=== PATIENT | female | born 1965 | race Caucasian/White ===

== ENCOUNTER 2016-11-08 09:46 | Inpatient (IN) | payer OTHER ==
[~2016-11-08] VITALS: Ht 162.6 cm; Wt 90.3 kg
[2016-11-08] MEDS ORDERED: KETOROLAC 30MG/ML VIAL IV ONE (11:45)
[2016-11-08 14:28] LABS: BASOPHILS % 0.5 % (0.0-2.0); EOSINOPHILS % 0.6 % (0.0-5.0); HEMATOCRIT. 41.5 % (36.0-48.0); MEAN CORPUSCULAR HEMOGLOBIN 28.6 pg (28.0-32.0); MEAN CORPUSCULAR VOLUME 84.9 fL (81.0-99.0); MEAN PLATELET VOLUME 7.9 fl (7.4-10.4); MONOCYTES % 6.7 % (2.0-8.0); NEUTROPHILS % 72.2 % (40.0-76.0); PLATELET 254 x1000/uL (130-400); RED BLOOD CELL COUNT 4.89 mill/uL (4.2-5.4); RED CELL DISTRIBUTION WIDTH 13.7 % (11.6-14.6)
[2016-11-08 14:32] LABS: PARTIAL THROMBOPLASTIN TIME 25.9 sec (23.4-31.0); PROTHROMBIN TIME 10.2 sec (9.4-11.6)
[2016-11-08 14:40] LABS: CARBON DIOXIDE 29 mEq/L (21-32); CHLORIDE 107 mEq/L (98-107)
[2016-11-08] MEDS ORDERED: MORPHINE SULFATE 4 MG/ML CPJ (NOT FOR IM USE) IV NR (15:15)
[2016-11-08] MEDS ORDERED: ACETAMINOPHEN 325MG TABLET PO PRN (15:30)
[2016-11-08] MEDS ORDERED: CLONIDINE 0.1MG TABLET PO PRN (15:30)
[2016-11-08] MEDS ORDERED: ONDANSETRON HCL 4MG/2ML VIAL IV PRN (15:30)
[2016-11-08] MEDS ORDERED: IPRATROPIUM/ALBUTEROL 0.5-3(2.5)MG/3ML NEB INH PRN (15:30)
[2016-11-08] MEDS ORDERED: DOCUSATE SODIUM 100MG CAPSULE PO PRN (15:30)
[2016-11-08 16:39] LABS: HCG SCREEN NEGATIVE
[2016-11-08 20:00] VITALS: BP_SYST 135; BP_SYST 147; BP_DIAS 56; BP_DIAS 57
[2016-11-08] MEDS ORDERED: ZOLPIDEM TARTRATE 5MG TABLET PO PRN (21:00)
[2016-11-08] MEDS: SODIUM CHLORIDE 0.9% 1,000 ML IV SCH (21:41)
[2016-11-08] MEDS: MORPHINE SULFATE 4 MG/ML CPJ (NOT FOR IM USE) IV PRN (21:41)
[2016-11-09] VITALS: BP 113/52
[2016-11-09 04:00] VITALS: BP 98/55
[2016-11-09] MEDS: MORPHINE SULFATE 4 MG/ML CPJ (NOT FOR IM USE) IV PRN ×4 (04:21→20:41)
[2016-11-09 07:12] LABS: BASOPHILS % 0.7 % (0.0-2.0); EOSINOPHILS % 2.6 % (0.0-5.0); HEMATOCRIT. 36.7 % (36.0-48.0); HEMOGLOBIN. 12.4 g/dL (12.0-16.0); LYMPHOCYTES % 35.8 % (20.0-50.0); MEAN CORPUSCULAR HEMOGLOBIN 28.8 pg (28.0-32.0); MEAN CORPUSCULAR VOLUME 85.2 fL (81.0-99.0); MEAN PLATELET VOLUME 8.2 fl (7.4-10.4); MONOCYTES % 8.9 % (2.0-8.0); PLATELET 229 x1000/uL (130-400); RED BLOOD CELL COUNT 4.31 mill/uL (4.2-5.4); RED CELL DISTRIBUTION WIDTH 13.9 % (11.6-14.6)
[2016-11-09 07:26] LABS: CLARITY URINE CLEAR (CLEAR); COLOR URINE YELLOW (YELLOW); GLUCOSE URINE NEGATIVE (NEGATIVE); KETONES URINE NEGATIVE (NEGATIVE); LEUKOCYTE ESTERASE URINE NEGATIVE (NEGATIVE); NITRITE URINE NEGATIVE (NEGATIVE); OCCULT BLOOD URINE TRACE (NEGATIVE); PH URINE 6.5 (4.5-8.0); PROTEIN URINE NEGATIVE (NEGATIVE); SPECIFIC GRAVITY URINE 1.023 (1.005-1.030)
[2016-11-09 07:53] LABS: CARBON DIOXIDE 28 mEq/L (21-32); CHLORIDE 104 mEq/L (98-107)
[2016-11-09 08:00] VITALS: BP 112/58
[2016-11-09] MEDS: PANTOPRAZOLE SODIUM 40 MG/VIAL IV SCH (08:33)
[2016-11-09] MEDS ORDERED: BACITRACIN ZINC 15GM TUBE TOP ONE (10:19)
[2016-11-09] MEDS ORDERED: BACITRACIN 50,000 UNITS/VIAL ONE (10:20)
[2016-11-09] MEDS ORDERED: VANCOMYCIN HCL 500 MG/VIAL ONE (10:20)
[2016-11-09] MEDS ORDERED: NORMAL SALINE 0.9% 10 ML SYR ONE ×2 (10:20→10:21)
[2016-11-09] MEDS ORDERED: MIDAZOLAM HCL 2 MG/2 ML VIAL ONE (10:54)
[2016-11-09] MEDS ORDERED: FENTANYL CITRATE/PF 50MCG/ML 2ML VIAL ONE (10:54)
[2016-11-09] MEDS ORDERED: ONDANSETRON HCL 4MG/2ML VIAL ONE (11:31)
[2016-11-09] MEDS ORDERED: DEXAMETHASONE 4MG/ML 1ML VIAL ONE (11:31)
[2016-11-09] MEDS ORDERED: FENTANYL CITRATE/PF 50MCG/ML 2ML VIAL IV PRN (12:00)
[2016-11-09] MEDS ORDERED: ONDANSETRON HCL 4MG/2ML VIAL IV SCH (12:00)
[2016-11-09] MEDS ORDERED: PROPOFOL 200MG/20ML VIAL IV ONE (12:03)
[2016-11-09] MEDS: MORPHINE SULFATE 2 MG/ML CPJ (NOT FOR IM USE) IV PRN ×2 (12:35→13:15)
[2016-11-09] MEDS: CEFAZOLIN 1000MG PREMIX 50 ML IV SCH ×3 (14:00→23:39)
[2016-11-09 15:43] VITALS: BP 121/67
[2016-11-09] MEDS: SODIUM CHLORIDE 0.9% 1,000 ML IV SCH (15:45)
[2016-11-09 20:00] VITALS: BP 135/70
[2016-11-10] VITALS: BP 106/53
[2016-11-10] MEDS: MORPHINE SULFATE 4 MG/ML CPJ (NOT FOR IM USE) IV PRN ×4 (01:29→21:33)
[2016-11-10 04:00] VITALS: BP 109/69
[2016-11-10 07:20] LABS: BASOPHILS % 0.2 % (0.0-2.0); EOSINOPHILS % 0.1 % (0.0-5.0); HEMATOCRIT. 34.3 % (36.0-48.0); HEMOGLOBIN. 11.6 g/dL (12.0-16.0); MEAN CORPUSCULAR HEMOGLOBIN 28.7 pg (28.0-32.0); MEAN CORPUSCULAR VOLUME 85.1 fL (81.0-99.0); MEAN PLATELET VOLUME 8.2 fl (7.4-10.4); MONOCYTES % 6.3 % (2.0-8.0); NEUTROPHILS % 74.4 % (40.0-76.0); PLATELET 212 x1000/uL (130-400); RED BLOOD CELL COUNT 4.03 mill/uL (4.2-5.4); RED CELL DISTRIBUTION WIDTH 13.4 % (11.6-14.6)
[2016-11-10 07:25] LABS: CARBON DIOXIDE 28 mEq/L (21-32); CHLORIDE 106 mEq/L (98-107)
[2016-11-10 08:00] VITALS: BP 96/52
[2016-11-10] MEDS: PANTOPRAZOLE SODIUM 40 MG/VIAL IV SCH (09:36)
[2016-11-10] MEDS: OMEPRAZOLE 20MG CAPSULE EXTENDED RELEASE PO SCH (09:36)
[2016-11-10] MEDS: ENOXAPARIN 40MG/0.4ML SYR SUBCUT SCH (09:38)
[2016-11-10] MEDS: HYDROCODONE/ACETAMINOPHEN 5/325MG TABLET PO PRN (09:39)
[2016-11-10 12:00] VITALS: BP 105/61
[2016-11-10] MEDS: SODIUM CHLORIDE 0.9% 1,000 ML IV SCH (13:03)
[2016-11-10 16:00] VITALS: BP 102/46
[2016-11-10 20:00] VITALS: BP 121/68
[2016-11-11] VITALS: BP 116/62
[2016-11-11 04:00] VITALS: BP 109/61
[2016-11-11] MEDS: MORPHINE SULFATE 4 MG/ML CPJ (NOT FOR IM USE) IV PRN (04:18)
[2016-11-11 06:06] LABS: BASOPHILS % 0.7 % (0.0-2.0); HEMATOCRIT. 35.3 % (36.0-48.0); HEMOGLOBIN. 11.8 g/dL (12.0-16.0); LYMPHOCYTES % 41.4 % (20.0-50.0); MEAN CORPUSCULAR HEMOGLOBIN 28.6 pg (28.0-32.0); MEAN CORPUSCULAR VOLUME 85.6 fL (81.0-99.0); MEAN PLATELET VOLUME 8.1 fl (7.4-10.4); MONOCYTES % 7.2 % (2.0-8.0); NEUTROPHILS % 48.7 % (40.0-76.0); PLATELET 224 x1000/uL (130-400); RED BLOOD CELL COUNT 4.13 mill/uL (4.2-5.4); RED CELL DISTRIBUTION WIDTH 13.6 % (11.6-14.6)
[2016-11-11 06:55] LABS: CARBON DIOXIDE 29 mEq/L (21-32); CHLORIDE 107 mEq/L (98-107)
[2016-11-11 08:00] VITALS: BP 101/57
[2016-11-11] MEDS: OMEPRAZOLE 20MG CAPSULE EXTENDED RELEASE PO SCH (08:52)
[2016-11-11] MEDS: ENOXAPARIN 40MG/0.4ML SYR SUBCUT SCH (09:20)
[2016-11-11] MEDS: HYDROCODONE/ACETAMINOPHEN 5/325MG TABLET PO PRN ×3 (09:28→23:00)
[2016-11-11] MEDS ORDERED: MORPHINE SULFATE 2 MG/ML CPJ (NOT FOR IM USE) IV PRN (10:45)
[2016-11-11] MEDS ORDERED: HYDROCODONE/ACETAMINOPHEN 5/325MG TABLET PO PRN (10:45)
[2016-11-11 12:00] VITALS: BP 111/63
[2016-11-11] MEDS: POLYETHYLENE GLYCOL 3350 (17GM) 1 DOSE PACK PO SCH (14:20)
[2016-11-11 16:00] VITALS: BP 101/58
[2016-11-11 20:00] VITALS: BP 130/71
[2016-11-12] VITALS: BP 125/68
[2016-11-12 04:00] VITALS: BP 121/71
[2016-11-12] MEDS ORDERED: NA PHOS,M-B/NA PHOS,DI-BA ENEMA 118ML PR PRN (09:15)
[2016-11-12] MEDS ORDERED: NA PHOS,M-B/NA PHOS,DI-BA ENEMA 118ML PR NR (09:15)
[2016-11-12] MEDS: HYDROCODONE/ACETAMINOPHEN 5/325MG TABLET PO PRN ×2 (10:05→20:55)
[2016-11-12] MEDS: ENOXAPARIN 40MG/0.4ML SYR SUBCUT SCH (10:05)
[2016-11-12] MEDS: LACTULOSE 20G/30ML UDC PO SCH ×3 (10:05→17:00)
[2016-11-12] MEDS: POLYETHYLENE GLYCOL 3350 (17GM) 1 DOSE PACK PO SCH (10:06)
[2016-11-12 12:00] VITALS: BP 123/72
[2016-11-12 16:00] VITALS: BP 111/66
[2016-11-12] MEDS: DOCUSATE SODIUM 100MG CAPSULE PO SCH (17:00)
[2016-11-12 20:00] VITALS: BP 123/58
[2016-11-13] VITALS: BP 122/54
[2016-11-13] MEDS: HYDROCODONE/ACETAMINOPHEN 5/325MG TABLET PO PRN ×3 (00:30→22:23)
[2016-11-13 04:00] VITALS: BP 106/58
[2016-11-13 06:31] LABS: BASOPHILS % 0.4 % (0.0-2.0); EOSINOPHILS % 4.5 % (0.0-5.0); HEMATOCRIT. 36.9 % (36.0-48.0); HEMOGLOBIN. 12.5 g/dL (12.0-16.0); LYMPHOCYTES % 36.1 % (20.0-50.0); MEAN CORPUSCULAR HEMOGLOBIN 28.8 pg (28.0-32.0); MEAN PLATELET VOLUME 7.9 fl (7.4-10.4); MONOCYTES % 8.2 % (2.0-8.0); NEUTROPHILS % 50.8 % (40.0-76.0); PLATELET 247 x1000/uL (130-400); RED BLOOD CELL COUNT 4.34 mill/uL (4.2-5.4); RED CELL DISTRIBUTION WIDTH 13.8 % (11.6-14.6)
[2016-11-13 07:07] LABS: CARBON DIOXIDE 27 mEq/L (21-32); CHLORIDE 107 mEq/L (98-107)
[2016-11-13 08:00] VITALS: BP 120/70
[2016-11-13] MEDS: ENOXAPARIN 40MG/0.4ML SYR SUBCUT SCH (08:28)
[2016-11-13] MEDS: POLYETHYLENE GLYCOL 3350 (17GM) 1 DOSE PACK PO SCH (08:30)
[2016-11-13] MEDS: DOCUSATE SODIUM 100MG CAPSULE PO SCH ×2 (08:30→16:19)
[2016-11-13 12:00] VITALS: BP 121/63
[2016-11-13 16:00] VITALS: BP 132/70
[2016-11-13 20:00] VITALS: BP 132/65
[2016-11-14] VITALS: BP 116/59
[2016-11-14 04:00] VITALS: BP 121/63
[2016-11-14 08:00] VITALS: BP 130/69
[2016-11-14] MEDS: ENOXAPARIN 40MG/0.4ML SYR SUBCUT SCH (08:08)
[2016-11-14] MEDS: DOCUSATE SODIUM 100MG CAPSULE PO SCH ×2 (08:08→17:47)
[2016-11-14] MEDS: POLYETHYLENE GLYCOL 3350 (17GM) 1 DOSE PACK PO SCH (08:09)
[2016-11-14] MEDS: HYDROCODONE/ACETAMINOPHEN 5/325MG TABLET PO PRN (09:02)
[2016-11-14] MEDS ORDERED: MORPHINE SULFATE 2 MG/ML CPJ (NOT FOR IM USE) IV PRN (11:45)
[2016-11-14 12:00] VITALS: BP 140/71
[2016-11-14 16:00] VITALS: BP 138/69
[2016-11-14] MEDS: OMEPRAZOLE 20MG CAPSULE EXTENDED RELEASE PO SCH (16:33)
[2016-11-14] MEDS: TRAMADOL 50MG TABLET PO PRN (16:44)
[2016-11-14 20:00] VITALS: BP 126/70
[2016-11-14] MEDS ORDERED: DIPHENHYDRAMINE 25MG CAPSULE PO PRN (23:45)
[2016-11-15] VITALS: BP 127/66
[2016-11-15 04:00] VITALS: BP 123/67
[2016-11-15 06:14] LABS: BASOPHILS % 0.6 % (0.0-2.0); EOSINOPHILS % 3.9 % (0.0-5.0); HEMATOCRIT. 36.3 % (36.0-48.0); HEMOGLOBIN. 12.3 g/dL (12.0-16.0); LYMPHOCYTES % 25.6 % (20.0-50.0); MEAN CORPUSCULAR HEMOGLOBIN 28.8 pg (28.0-32.0); MEAN CORPUSCULAR VOLUME 85.2 fL (81.0-99.0); MEAN PLATELET VOLUME 8.1 fl (7.4-10.4); MONOCYTES % 8.3 % (2.0-8.0); NEUTROPHILS % 61.6 % (40.0-76.0); PLATELET 257 x1000/uL (130-400); RED BLOOD CELL COUNT 4.26 mill/uL (4.2-5.4); RED CELL DISTRIBUTION WIDTH 13.5 % (11.6-14.6)
[2016-11-15 06:18] LABS: CARBON DIOXIDE 27 mEq/L (21-32); CHLORIDE 104 mEq/L (98-107)
[2016-11-15 08:00] VITALS: BP 134/84
[2016-11-15] MEDS: POLYETHYLENE GLYCOL 3350 (17GM) 1 DOSE PACK PO SCH (09:15)
[2016-11-15] MEDS: ENOXAPARIN 40MG/0.4ML SYR SUBCUT SCH (09:15)
[2016-11-15] MEDS: DOCUSATE SODIUM 100MG CAPSULE PO SCH ×2 (09:15→17:31)
[2016-11-15] MEDS: OMEPRAZOLE 20MG CAPSULE EXTENDED RELEASE PO SCH (09:22)
[2016-11-15] MEDS: TRAMADOL 50MG TABLET PO PRN ×2 (09:23→22:27)
[2016-11-15 12:00] VITALS: BP 128/81
[2016-11-15 16:00] VITALS: BP 136/86
[2016-11-15 20:00] VITALS: BP 133/66
[2016-11-16 01:30] VITALS: BP 130/60
[2016-11-16 04:00] VITALS: BP 132/65
[2016-11-16] MEDS: OMEPRAZOLE 20MG CAPSULE EXTENDED RELEASE PO SCH (06:32)
[2016-11-16 08:00] VITALS: BP 113/58
[2016-11-16] MEDS: DOCUSATE SODIUM 100MG CAPSULE PO SCH (08:31)
[2016-11-16] MEDS: POLYETHYLENE GLYCOL 3350 (17GM) 1 DOSE PACK PO SCH (08:33)
[2016-11-16] MEDS: ENOXAPARIN 40MG/0.4ML SYR SUBCUT SCH (08:36)
[2016-11-16 11:57] VITALS: BP 113/58
[2016-11-16 13:02] VITALS: BP 131/74
== END 2016-11-16 13:20 | disposition home or self-care (01) | DRG 494 ==
LOC: ER 11:07 → 6EST 13:20 → SUPCPDRO 14:31 → ENRESERV 17:17
PROVIDERS: ADMIT Family Medicine Adult Medicine; ATTEND Family Medicine Adult Medicine
PROC: 0QSG05Z Reposition Right Tibia with External Fixation Device, Open Approach (ICD-10-PCS; principal; 2016-11-09 10:30)
DX: S82.871A Displaced pilon fracture of right tibia, initial encounter for closed fracture (principal); E66.01 Morbid (severe) obesity due to excess calories; D72.829 Elevated white blood cell count, unspecified; R73.9 Hyperglycemia, unspecified; D64.9 Anemia, unspecified; S82.831A Other fracture of upper and lower end of right fibula, initial encounter for closed fracture; W11.XXXA Fall on and from ladder, initial encounter; Z68.34 Body mass index [BMI] 34.0-34.9, adult; Z90.49 Acquired absence of other specified parts of digestive tract; Y93.H2 Activity, gardening and landscaping; Y92.096 Garden or yard of other non-institutional residence as the place of occurrence of the external cause; Y99.8 Other external cause status
CPT/HCPCS: 36415; 71010; 73590; 73600; 73700; 76000; 80048; 80053; 81001; 83036; 83735; 84703; 85025; 85610; 85730; 86850; 86900; 87086; 93005; 93970; 96374; 96375; 97110; 97116; 97163; 97166; 97530; 97535; 99285; A4216; C1893; C9113; J0690; J1100; J1650; J1885; J2250; J2270; J2405; J2704; J3010; J3370; J3490; J7030; Q4051; A4315

== ENCOUNTER 2023-11-21 19:53 | Emergency (ER) | payer OTHER ==
[~2023-11-21] VITALS: Ht 162.6 cm; Wt 96.4 kg
[2023-11-21 20:03] VITALS: TEMP 98.6; O2SAT 100
[2023-11-21] MEDS ORDERED: EPIN0.3P3 IM (20:37)
[2023-11-21] MEDS ORDERED: DIPH25CA83 PO (20:37)
[2023-11-21] MEDS ORDERED: P20 MT (20:37)
[2023-11-21] MEDS: SODIUM CHLORIDE 0.9% 1,000 ML IV ONE (21:03)
[2023-11-21] MEDS: DIPHENHYDRAMINE 50MG/ML VIAL IV ONE (21:04)
[2023-11-21] MEDS: FAMOTIDINE 20MG/2ML VIAL IV ONE (21:04)
[2023-11-21] MEDS: METHYLPREDNISOLONE SOD SUCC 125MG/2ML (ACT-O-VIAL) IV ONE (21:04)
[2023-11-21 21:10] LABS: BASOPHILS % 0.8 % (0.0-2.0); EOSINOPHILS % 2.1 % (0.0-5.0); HEMATOCRIT. 45.3 % (36.0-48.0); LYMPHOCYTES % 37.6 % (20.0-50.0); MEAN CORPUSCULAR HGB CONC 33.2 g/dL (31.0-37.0); MEAN CORPUSCULAR VOLUME 87.5 fL (81.0-99.0); MEAN PLATELET VOLUME 7.9 fl (7.4-10.4); MONOCYTES % 5.3 % (2.0-8.0); NEUTROPHILS % 54.2 % (40.0-76.0); PLATELET 303 x1000/uL (130-400); RED BLOOD CELL COUNT 5.18 mill/uL (4.2-5.4); WHITE BLOOD COUNT 6.9 x1000/uL (4.5-11.0)
[2023-11-21 21:18] LABS: CHLORIDE 105 mEq/L (98-107); POTASSIUM 4.3 mEq/L (3.5-5.1); SODIUM 138 mEq/L (136-145)
[2023-11-21 21:19] LABS: CALCIUM 9.9 mg/dL (8.7-10.4); CARBON DIOXIDE 28 mEq/L (21-32)
[2023-11-21 21:24] LABS: CREATININE 0.9 mg/dL (0.6-1.0); GLUCOSE 183 mg/dL (70-105); UREA NITROGEN BLOOD 17 mg/dL (9-23)
[2023-11-21 23:46] VITALS: BP 121/78; PULSE 87; RESP 11; O2SAT 95
== END 2023-11-21 23:56 | disposition home or self-care (01) ==
LOC: ER 19:53
DX: T78.40XA Allergy, unspecified, initial encounter (principal); E11.9 Type 2 diabetes mellitus without complications; Z90.49 Acquired absence of other specified parts of digestive tract; X58.XXXA Exposure to other specified factors, initial encounter
CPT/HCPCS: 99284; 96374; 96375; 96361; 80048; 85025; 36415; J1200; J3490; J2919; J7030